=== PATIENT | female | born 1980 | race Caucasian/White ===

== ENCOUNTER 2024-06-25 12:26 | Emergency (ER) | payer BC, SELFPAY ==
[2024-06-25 12:50] VITALS: BP 122/70; PULSE 99; RESP 16; TEMP 36.1; O2SAT 96
[2024-06-25 13:10] LABS: EDSTREPNEGPOS1 Negative (Negative)
--- NOTE | 2024-06-25 13:11 | ED_ITS ---
HPI - URI/Sore Throat General Chief Complaint: Upper Respiratory Infection Stated Complaint: ?strep throat Time Seen by Provider: 06/25/24 13:11 Source: patient and RN notes reviewed Mode of arrival: ambulatory Limitations: no limitations History of Present Illness HPI Narrative: 43-year-old female presented for complaint of Throat pain onset this morning. Also reports several weeks of nasal congestion, sinus pressure, cough. Patient was treated the week before with Augmentin for these symptoms. Currently denies shortness of breath, wheezing, nausea, vomiting diarrhea, fevers or lethargy. MD elicited complaint: cough Related Data Home Medications ?Medication ?Instructions ?Recorded ?Confirmed ?Last Taken ?Type cholecalciferol (vitamin D3) 125 125 mcg PO DAILY 11/08/23 05/01/24 Unknown History mcg (5,000 unit) capsule clindamycin phosphate 1 % topical 1 applic topical DAILY 11/08/23 05/01/24 Unknown History solution fexofenadine [Sumi Allergy] PO 11/08/23 05/01/24 Unknown History niacinamide 500 mg tablet 500 mg PO DAILY 11/08/23 05/01/24 Unknown History Allergies Allergy/AdvReac Type Severity Reaction Status Date / Time No Known Allergies Allergy Verified 06/25/24 13:05 Review of Systems Review of Systems: CONSTITUTIONAL: Denies body aches, fever, chills, or sweats. EYES: Denies visual changes, redness, or discharge. ENT: reports rhinorrhea, congestion, sore throat CARDIOVASCULAR: Denies chest pain, palpitations, or edema. RESPIRATORY: reports cough Denies dyspnea. GASTROINTESTINAL: Denies abdominal pain, nausea, vomiting, or diarrhea. SKIN: Denies rash, itching, or wounds. MUSCULOSKELETAL: Denies back pain, joint pain, or myalgia. NEUROLOGIC: Denies headache PMFSH Past Medical History Medical History Hyperlipidemia Elevated glucose Obesity, Class III, BMI 40-49.9 (morbid obesity) Chronic cough Tonsillitis Herpesviral vesicular dermatitis Acne Rosacea Vitamin D deficiency Seasonal allergies Cough HTN (hypertension) Surgical History Surgical History History of 2019 History of cholecystectomy 2002 Family History Family History Father Esophageal cancer Hypertension Mother Breast cancer Hypertension Thyroid disorder Grandparent Carcinoma of colon Cerebrovascular accident Grandparent Lung cancer Depression Social History Social History Smoking status: Never smoker Alcohol intake: never Substance use: never Current Housing: Decline to Answer Concerned About Future Housing: Decline to Answer Difficulty Paying Gas/Electric Bills: Decline to Answer Difficulty Paying for Meds: Decline to Answer Currently Unemployed: Decline to Answer Education: Decline to Answer Difficulty w/ Childcare or Family Care: Decline to Answer Exam Narrative: GENERAL: mildly ill-appearing, no acute distress. EYES: conjunctivae clear ENT: Mucous membranes moist. Right TM pearly rbuy with normal light reflex Right TM mildly erythematous with effusion; no tragal tenderness. Oropharynx erythematous without lesions. Tonsils not enlarged and without exudate. No drooling, no hoarseness, no trismus, uvula midline. No tripod positioning, hot potato voice, or soft palate swelling. NECK: Supple. No lymphadenopathy CHEST: Clear to auscultation, breath sounds equal. No respiratory distress, speaks in full sentences. HEART: Regular rate and rhythm. No murmur heard. SKIN: Warm, dry, no rash. NEURO: Alert and oriented x3. Course Course Emergency Course: Patient is aware of diagnosis, understands and agrees to treatment plan. Anticipatory guidance given. Patient agrees to follow-up as directed and is aware of reasons to seek care at the emergency department. Portions of this record may have been created with voice recognition software Level of Care: Express Care Visit Vital Signs Vital signs: Vital Signs Temperature 96.9 F L 06/25/24 12:50 Pulse Rate 99 06/25/24 12:50 Respiratory Rate 16 06/25/24 12:50 Blood Pressure 122/70 06/25/24 12:50 Pulse Oximetry 96 06/25/24 12:50 Temperature 96.9 F L 06/25/24 12:50 Pulse Rate 99 06/25/24 12:50 Respiratory Rate 16 06/25/24 12:50 Blood Pressure 122/70 06/25/24 12:50 Pulse Oximetry 96 06/25/24 12:50 reviewed MDM - URI/Sore Throat MDM Narrative Medical decision making narrative: Neg strep result reviewed with pt. pt has had nasal congestion and pressure for over one month. Will send another course of Augmentin. Advise supportive treatments. Patient is appropriate for outpatient treatment and follow-up. Differential Diagnosis Differential diagnosis: Likely upper respiratory infection, viral infection and pharyngitis Lab Data Labs: Lab Results 06/25/24 Range/Units 13:08 POC Grp A Strep Screen Negative (Negative) Discharge Plan Discharge Clinical Impression: Sinusitis Patient Disposition: Home, Self-Care Condition: Stable Instructions: Antibiotic Form, Rhinosinusitis (ED) Additional Instructions: strep negative Recommendations: Flonase spray and Zyrtec (or Claritin/Sumi) over the counter Cough syrup may cause drowsiness; avoid driving or take it at night time. Tylenol 1000mg every 8 hours as needed for pain Symptomatic treatment includes: rest, fluids, and increase humidity of the air at home. Follow up with your primary care provider in 1 week. Go to the ER for worsening symptoms or concerns. Patient Language: Belarusian Prescriptions: New amoxicillin-pot clavulanate 875-125 mg tablet 1 tablet PO Q12H 7 Days Qty: 14 0RF No Action cholecalciferol (vitamin D3) 125 mcg (5,000 unit) capsule 125 mcg PO DAILY niacinamide 500 mg tablet 500 mg PO DAILY clindamycin phosphate 1 % solution 1 applic topical DAILY albuterol sulfate 90 mcg/actuation HFA aerosol inhaler 1 - 2 inh inhalation Q4-6H PRN (Reason: shortness of breath or wheezing) Qty: 8.5 2RF valacyclovir 1 gram tablet 1,000 mg PO BID PRN (Reason: cold sores) Qty: 60 2RF lisinopril 10 mg tablet 10 mg PO DAILY Qty: 90 3RF fexofenadine [Sumi Allergy] PO fluticasone propion-salmeterol [Wixela Inhub] 250-50 mcg/dose blister with device 1 inh inhalation BID Qty: 60 2RF montelukast [Singulair] 10 mg tablet 10 mg PO QHS Qty: 30 5RF amoxicillin-pot clavulanate 875-125 mg tablet 1 tablet PO Q12H Qty: 20 0RF prednisone 20 mg tablet 20 mg PO DAILY Qty: 5 0RF benzonatate 200 mg capsule 200 mg PO TID PRN (Reason: cough) Qty: 30 0RF Follow-up/Referrals: Ivet Thompson, MAINTENANCE DEPARTMENT MANAGER [Primary Care Provider] -
== END 2024-06-25 13:26 | disposition home or self-care (01) ==
PROVIDERS: Emergency Provider Nurse Practitioner Family; PCP Nurse Practitioner Family
DX: J32.9 Chronic sinusitis, unspecified (principal); I10 Essential (primary) hypertension; E78.5 Hyperlipidemia, unspecified; E55.9 Vitamin D deficiency, unspecified; E66.01 Morbid (severe) obesity due to excess calories; Z68.42 Body mass index [BMI] 45.0-49.9, adult
CPT/HCPCS: 87081; 87880; 99213; G0463

== ENCOUNTER 2025-05-04 07:42 | Outpatient (CLI) | payer BC, SELFPAY ==
--- NOTE | ~2025-05-04 | MM_ITS ---
EXAMINATION: MM screening althea BI w carlos HISTORY: Screening TECHNIQUE: Craniocaudal and mediolateral oblique 3-D tomosynthesis images were obtained and synthetic 2-D images were generated. CAD analysis was submitted and interpreted. COMPARISON: None provided BREAST PARENCHYMAL COMPOSITION: The breasts are almost entirely fatty. FINDINGS: There is no evidence of suspicious mass, calcification, or architectural distortion to suggest malignancy in either breast. IMPRESSION: 1. No mammographic evidence of malignancy. 2. Recommend routine screening mammography in one year. BI-RADS Category 1: Negative Reviewed, dictated and finalized at location B. N MATERIAL VALUE ADDED ASSESSOR
--- OUTSIDE RECORDS SUMMARY | 2025-05-04 07:48 | XMS_ITS | Continuity of Care Document ---
Author Organization [facility] Address [address] [place] [id number] Insurance Providers Payer Plan Claims Address Claims Phone Policy Number Group Number Relation Employer Guarantor Name Guarantor Guarantor Address Guarantor Phone [employer] [id number], [place] [id number] Self Samira Akbar [phone] [place] [id number] Nola NICOLAS [id number] Self Samira Akbar [phone] [place] [address] Problems Condition ICD9 code ICD10 code SNOMED code Start Date End Date S tatus Encounter for screening for other metabolic disorders Z13.228 Results No Results Allergies, adverse reactions, alerts No known allergies and adverse reactions Medications No administered medications reported Vital Signs No vital signs reported Social History No smoking Hx information available
== END 2025-05-04 07:43 | disposition home or self-care (01) ==
LOC: ANHFOHIMG 07:46
PROVIDERS: PCP Nurse Practitioner Family; Visit Provider Nurse Practitioner Family
DX: Z12.31 Encounter for screening mammogram for malignant neoplasm of breast (principal)
CPT/HCPCS: 77063; 77067